=== PATIENT | male | born 1955 | race Caucasian/White ===

== ENCOUNTER 2019-04-25 10:00 | Inpatient (IN) | payer OTHER ==
[~2019-04-25 10:00] MED LIST: Iopamidol 370 76% 100 ML VIAL ONE; Iopamidol 370 76% 50 ML VIAL FS ONE
[2019-04-25 10:16] LABS: Hemoglobin 15.4 g/dL (14.0-18.0); Mean Corpuscular HGB CONC 32.4 g/dL (32.0-36.0); Mean Corpuscular Hemoglobin 28.1 pg (27.0-31.0); Mean Corpuscular Volume 86.5 fL (78.0-98.0); Mean Platelet Volume 8.6 fL (7.4-10.4); Platelet Count 256 thou/uL (130-400); RBC Distribution Width 13.7 % (11.5-14.5); Red Blood Cell (RBC) Count 5.48 mill/uL (4.70-6.10); White Blood Cell (WBC) Count 24.2 thou/uL (4.8-10.8)
--- NOTE | 2019-04-25 10:17 | RAD ---
XR Chest 1 View Portable History: STEMI Comparison: None. Findings: The fibular pad projects over the right lateral hemithorax. Heart size is enlarged. Mild pu lmonary edema. Trace effusions. No pneumothorax. Multiple midline sternotomy wires. No displaced rib fracture. Impression: Cardiomegaly with moderate pulmonary edema and trace effusions.
[2019-04-25 10:21] LABS: INR-International Normal Ratio 1.1; Prothrombin Time 14.5 SEC (12.0-14.7)
[2019-04-25] MEDS ORDERED: Verapamil 5 MG/2 ML VIAL ONE (10:29)
[2019-04-25] MEDS ORDERED: Adenosine 6 MG/2 ML VIAL ONE (10:29)
[2019-04-25] MEDS ORDERED: Nitroglycerin 100MG/250ML BOT 250 ML ONE (10:29)
[2019-04-25 10:30] LABS: Band 11 % (5-11); Eosinophils 4 % (0-10); Lymphocytes 10 % (21-51); MDiff Complete? YES; Neutrophil 74 % (42-75); RBC Morphology Normal; Reactive Lymphocytes 1 % (0-10)
[2019-04-25 10:40] LABS: ALT (SGPT) 104 U/L (8-55); AST (SGOT) 111 U/L (5-34); Albumin 3.7 g/dL (3.4-4.8); Alkaline Phosphatase 86 U/L (40-150); Anion Gap 16 mmol/L (10-20); BUN (Urea Nitrogen) 12 mg/dL (8.4-25.7); Bilirubin, Total 0.7 mg/dL (0.2-1.2); Calc. Creatinine Clearance 0 mL/min (70-130); Calcium 8.7 mg/dL (7.8-10.44); Carbon Dioxide 17 mmol/L (23-31); Chloride 108 mmol/L (98-107); Estimated GFR-MDRD 82; Globulin 3.3 g/dL (2.4-3.5); Glucose 132 mg/dL (80-115); Lipase 14 U/L (8-78); Potassium 4.3 mmol/L (3.5-5.1); Sodium 137 mmol/L (136-145)
[2019-04-25] MEDS ORDERED: Heparin 10,000 UNITS/1 ML VIAL ONE ×2 (10:46→11:29)
--- NOTE | 2019-04-25 10:49 | HP ---
DATE OF CONSULTATION: CHIEF COMPLAINT: Acute NH and syncope. HISTORY OF PRESENT ILLNESS: Mr. Wilson is a 63-year-old gentleman, who has not been seen or evaluated at [facility]. He recently had a syncopal episode while in the shower. An EKG was performed. He was shocked x3. Return of spontaneous circulation was noted. He did not require intubation. He was seen and evaluated in [facility]. He did have mild chest discomfort. His initial EKG did show ST-segment elevation noted anteriorly with some inferiorly. There was delay on angio given recent fall. CT scan of the head was negative. PAST MEDICAL HISTORY: 1. CAD, status post bypass surgery 18 years ago. 2. CABG x4. 3. Hypertension. ALLERGIES: NONE. PAST SURGICAL HISTORY: As above. REVIEW OF SYSTEMS: A 10-point review of systems is reviewed as above, otherwise negative. PHYSICAL EXAMINATION: GENERAL: Patient is a pleasant male, who is in no acute distress. The patient appears their stated age. He is currently requiring a BiPAP. VITAL SIGNS: Blood pressure 113/75, pulse 83, respirations 20. NEUROLOGIC: The patient is alert and oriented x3 with no focal neurologic deficits. HEENT: Sclerae without icterus. Mouth has moist mucous membranes with normal pallor. NECK: No JVD. Carotid upstroke brisk. No bruits bilaterally. LUNGS: Clear to auscultation with unlabored respirations. BACK: No scoliosis or kyphosis. CARDIAC: Regular rate and rhythm with normal S1 and S2. No S3 or S4 noted. No significant rubs, murmurs, thrills, or gallops noted throughout the precordium. PMI is not displaced. There is no parasternal heave. ABDOMEN: Soft, nontender, nondistended. No peritoneal signs present. No hepatosplenomegaly. No abnormal striae. EXTREMITIES: 2+ femoral and 2+ dorsalis pedis pulses. No cyanosis, clubbing, or edema. SKIN: No gross abnormalities. LABORATORY DATA: Pertinent labs pending. CARDIOVASCULAR STUDIES: EKG showed normal sinus rhythm with nonspecific interventricular conduction delay, mild ST-segment elevation noted inferiorly. There was initial ST-segment elevation noted anteriorly that has improved, but still noted. IMPRESSION: 1. Acute myocardial infarction. 2. Syncope. 3. Coronary artery disease. 4. Status post bypass surgery. RECOMMENDATIONS: His EKG is nearly normalized, but continues to have symptoms. We would recommend urgent coronary angiography plus PCI. I discussed the procedure in full detail with Mr. Wilson. The risks include, but not limited to the following: , stroke, NH, need for emergency surgery, loss of limb, bleeding, and infection, as well as a reaction to the dye causing kidney failure and needing long-term dialysis. I also discussed the risks of PCI to include all of the above including coronary dissection and perforation in addition to acute stent thrombosis and restenosis. All questions about the procedure were answered. Given the above, the patient agreed to proceed with coronary angiography and possible PCI. All questions were answered. Given the above, the patient agreed to proceed with the above procedure. The patient did state that of the four bypasses, one has already closed. Further recommendations pending the above. Job ID: [id number]
--- NOTE | 2019-04-25 10:55 | CT ---
CT HEAD NONCONTRAST: Date: 04/25/19 INDICATION: Fall, head injury. FINDINGS: There is no intracranial hemorrhage, mass effect, or midline shift demonstrated. Enlargement of the v entricular system is present, mild in degree. Microvascular ischemic disease of the cerebral white ma tter is present. No depressed calvarial fracture or pneumocephalus. Decreased pneumatization of right mastoid air cells. IMPRESSION: 1. No acute intracranial hemorrhage or mass effect. 2. Mild enlargement of the ventricular system. 3. Microvascular ischemic disease of the cerebral white matter, mild in degree. POS: [facility]
[2019-04-25] MEDS ORDERED: Clopidogrel Bisulfate 300 MG TAB ONE (11:05)
[2019-04-25] MEDS ORDERED: cloNIDine 0.1 MG TAB PO PRN (11:10)
[2019-04-25] MEDS ORDERED: Mag-Al 1200 mg/1200 mg/30 ML UDCUP PO PRN (11:10)
[2019-04-25] MEDS ORDERED: Morphine 2 MG/ML SYRINGE SLOW IVP PRN (11:10)
[2019-04-25] MEDS ORDERED: Acetaminophen/Codeine 30-300mg Tablet PO PRN (11:10)
[2019-04-25] MEDS ORDERED: Milk Of Magnesia 30 ML UDCUP PO PRN (11:10)
[2019-04-25] MEDS ORDERED: Nitroglycerin 0.4 MG TAB (25 Tab Bottle) SL PRN (11:10)
[2019-04-25] MEDS ORDERED: Sodium Chloride 0.9% 1,000 ML IV SCH ×2 (11:15→16:45)
[2019-04-25 12:42] LABS: Lactic Acid 1.4 mmol/L (0.5-2.2)
[2019-04-25 12:55] LABS: Troponin I 1.539 ng/mL (< 0.028)
[2019-04-25 18:12] LABS: CKMB 67.7 ng/mL (0-6.6); Troponin I 5.749 ng/mL (< 0.028)
[2019-04-25] MEDS: Atorvastatin Calcium 40 MG TAB PO SCH (21:03)
--- NOTE | 2019-04-25 23:18 | CON ---
DATE OF CONSULTATION: 04/25/2019 SERVICE: Pulmonary Medicine. HISTORY OF PRESENT ILLNESS: The patient is a 63-year-old white male with past medical history significant for coronary artery disease. He was in his usual state of health when he had a syncopal episode and was pulseless. He was in a ventricular tachycardia arrest. He ended up getting chest compressions x3 occasions. Each time, blood flow was restored. Ultimately, he was identified as having an acute myocardial infarction. He was emergently taken for cardiac catheterization, and blood vessel was opened up. Since then, he has been hemodynamically stable without any additional dying spells. He indicates he has some chest soreness associated with taking deep breaths or coughing because of the chest compressions. Outside of that, however, he is relatively asymptomatic. He denies having any significant shortness of breath. He does have known COPD. He takes Spiriva for this and with that, has very little reliance on his other inhalers. PAST MEDICAL HISTORY: 1. Coronary artery disease. 2. Hypertension. 3. COPD. PAST SURGICAL HISTORY: 1. Coronary artery bypass graft. 2. Percutaneous coronary intervention with drug-eluting stent. SOCIAL HISTORY: Negative for current alcohol, tobacco, or illicit drug use. He is in a detention. FAMILY HISTORY: Noncontributory. ALLERGIES: NO KNOWN DRUG ALLERGIES. MEDICATIONS: List of his inpatient medications was reviewed. I have scheduled DuoNebs around the clock. REVIEW OF SYSTEMS: General, head, ears, eyes, nose, throat, cardiovascular, respiratory, GI, , musculoskeletal, neurologic, and skin is negative except as mentioned in the HPI. PHYSICAL EXAMINATION: VITAL SIGNS: Afebrile, pulse 75, blood pressure 109/58, respirations 26, saturation 100% on 2 L nasal cannula. GENERAL: The patient is awake and alert, in no apparent distress. LUNGS: Very good air entry with a slightly prolonged expiratory phase. I do not appreciate any wheeze or crackles. HEART: Normal rate. Regular. ABDOMEN: Soft, nontender, nondistended. Bowel sounds are positive. MUSCULOSKELETAL: No cyanosis or clubbing. No pitting in the bilateral lower extremities. NEUROLOGIC: Grossly nonfocal. LABORATORY DATA: Basic metabolic profile is unremarkable. Liver function studies are slightly elevated with an AST and ALT in the low 100s. Troponin is up trending to 1.5, BNP 92, lactate 1.4. IMAGIN. CT of the brain demonstrates no acute intracranial abnormality. 2. Chest x-ray demonstrates no acute cardiopulmonary abnormality other than some rib fractures. There is significant cardiomegaly present. No obvious infiltrates other than some right infrahilar streakiness. ASSESSMENT: 1. Acute hypoxic respiratory failure. 2. Acute myocardial infarction. 3. Ventricular tachycardia arrest, status post return of circulation with preserved neurologic function. 4. Chronic obstructive pulmonary disease without current exacerbation. DISCUSSION AND PLAN: I will schedule DuoNebs q.6 hours. The patient will be watched very closely on telemetry in the ICU to make certain he does not have any additional events. I will drop his IV fluids down to 50 an hour. Supportive measures will otherwise be continued. 70 minutes have been devoted to this patient in various activities. I personally reviewed all imaging studies and laboratory data noted within this document. For fifty percent of this time, I was interacting with the patient at the bedside or coordinating care with the care team. For the remainder of the time I was immediately available to the patient in the hospital unit. Job ID: [id number] [facility]
[2019-04-26 04:21] LABS: #Eosinphils 0.1 thou/uL (0.0-0.7); #Lymphocytes 1.5 thou/uL (1.20-3.40); #Monocytes 0.9 thou/uL (0.11-0.59); #Neutrophils 12.1 thou/uL (1.40-6.50); %Basophils 0.2 % (0.0-1.0); %Eosinophils 0.4 % (0.0-10.0); %Lymphocytes 10.1 % (21.0-51.0); %Monocytes 6.2 % (0.0-10.0); %Neutrophils 83.2 % (42.0-75.0); Hemoglobin 13.9 g/dL (14.0-18.0); Mean Corpuscular HGB CONC 32.9 g/dL (32.0-36.0); Mean Corpuscular Hemoglobin 28.3 pg (27.0-31.0); Mean Corpuscular Volume 86.1 fL (78.0-98.0); Mean Platelet Volume 8.4 fL (7.4-10.4); Platelet Count 246 thou/uL (130-400); Red Blood Cell (RBC) Count 4.92 mill/uL (4.70-6.10); White Blood Cell (WBC) Count 14.5 thou/uL (4.8-10.8)
[2019-04-26 04:40] LABS: ALT (SGPT) 77 U/L (8-55); AST (SGOT) 74 U/L (5-34); Albumin 3.8 g/dL (3.4-4.8); Alkaline Phosphatase 68 U/L (40-150); Anion Gap 13 mmol/L (10-20); BUN (Urea Nitrogen) 17 mg/dL (8.4-25.7); Bilirubin, Total 1.1 mg/dL (0.2-1.2); Calc. Creatinine Clearance 110 mL/min (70-130); Calcium 8.6 mg/dL (7.8-10.44); Carbon Dioxide 23 mmol/L (23-31); Chloride 107 mmol/L (98-107); Estimated GFR-MDRD Greater than 90; Globulin 2.8 g/dL (2.4-3.5); Glucose 139 mg/dL (80-115); Potassium 4.7 mmol/L (3.5-5.1); Protein, Total 6.6 g/dL (5.8-8.1); Sodium 138 mmol/L (136-145)
[2019-04-26 06:10] VITALS: BMI 33.0
[2019-04-26] MEDS ORDERED: Prevnar 13-Val Conj/PF 0.5 ML SYRINGE IM ONE (09:00)
[2019-04-26] MEDS: Aspirin Chewable 81 MG TAB PO SCH (09:01)
[2019-04-26] MEDS: Clopidogrel Bisulfate 75 MG TAB PO SCH (09:01)
--- NOTE | 2019-04-26 11:13 | PDOC.CPN ---
- Subjective Date: 04/26/19 Time: 14:13 Interval history: Doing well No changes noted overnight - Objective Allergies/Adverse Reactions: Allergies Allergy/AdvReac Type Severity Reaction Status Date / Time codeine Allergy Verified 04/25/19 12:10 Visit Medications: Current Medications Acetaminophen/Codeine Phosphate (Tylenol #3) 1 tab PO Q4H PRN PRN Reason: Mild Pain (1-3) Al Hydroxide/Mg Hydroxide (Maalox) 30 ml PO Q3H PRN PRN Reason: Indigestion Albuterol/Ipratropium (Duoneb) 3 ml NEB [id number] [facility] Last Admin: 04/26/19 06:40 Dose: 3 ml Aspirin (Aspirin Chewable) 81 mg PO DAILY [facility] Last Admin: 04/26/19 09:01 Dose: 81 mg Atorvastatin Calcium (Lipitor) 40 mg PO HS [facility] Last Admin: 04/25/19 21:03 Dose: 40 mg Clonidine (Catapres) 0.1 mg PO Q2H PRN PRN Reason: SBP GREATER THAN 160 Clopidogrel Bisulfate (Plavix) 75 mg PO DAILY [facility] Last Admin: 04/26/19 09:01 Dose: 75 mg Magnesium Hydroxide (Milk Of Magnesium) 30 ml PO Q12H PRN PRN Reason: Constipation Morphine Sulfate (Morphine) 2 mg SLOW IVP Q4H PRN PRN Reason: Moderate Chest Pain (4-6) Last Admin: 04/25/19 13:39 Dose: 2 mg Nitroglycerin (Nitrostat) 0.4 mg SL Q5MIN PRN PRN Reason: Chest Pain Vital Signs & Weight: Vital Signs Temp Pulse Pulse Pulse Resp BP BP 04/26/19 09:52 83 78 131/70 132/54 L 04/26/19 08:00 98.7 F 04/26/19 06:54 04/26/19 06:40 74 21 H 04/26/19 04:00 98.8 F 04/26/19 00:01 70 31 H 04/26/19 00:00 98.8 F Pulse Ox Pulse Ox Pulse Ox 04/26/19 09:52 97 95 04/26/19 08:00 95 04/26/19 06:54 97 04/26/19 06:40 97 04/26/19 04:00 04/26/19 00:01 99 04/26/19 00:00 Weight 198 lb 6.656 oz - Physical Exam General: alert & oriented x3 Neck: supple neck, no JVD/HJR Cardiac: regular rate and rhythm, no murmur Lungs: clear to auscultation, no rhonchi Neuro: grossly intact Abdomen: unremarkable - Labs Result Diagrams: 04/26/19 04:10 04/26/19 04:10 Troponin/CKMB CK-MB (CK-2) 67.7 ng/mL (0-6.6) H* 04/25/19 17:26 Troponin I 5.749 ng/mL (< 0.028) H* 04/25/19 17:26 - Assessment/Plan Assessment/Plan: CAD NQWMI s/p stent Patient currently doing well. Patient underwent an acute cardiac event yesterday. Based on his troponin levels this may have been a primary electrical event. Pt with syncope and CPR followed by AED. Would recommend an echo a Doppler to assess EF. EF on cath estimated at 35%. Will also consult with EP for possible EP study versus ICD. He does have severe cornary disease with two of four grafts occluded and a third graft with severe disease present that is grafted to a very small diffusely diseased circumflex artery. Continue beta dave therapy Statin therapy in addition to a nitrates
[2019-04-26] MEDS ORDERED: Amoxicillin/Potassium Clav 500 MG TAB PO SCH (13:00)
[2019-04-26] MEDS ORDERED: predniSONE 20 MG TAB PO SCH (13:00)
--- NOTE | 2019-04-26 13:18 | PRG ---
DATE OF SERVICE: 04/26/2019 SERVICE: Pulmonary Medicine. INTERVAL HISTORY: The patient is doing really well from respiratory standpoint. Breathing comfortably. No complaints of nausea or vomiting. He does have ongoing chest discomfort. Otherwise, there has been no interval change to his condition. PHYSICAL EXAMINATION: VITAL SIGNS: Afebrile, pulse 79, blood pressure 120/57, respirations 29, saturation 98%, currently on 1 L nasal cannula. GENERAL: The patient is awake and alert, in no apparent distress. LUNGS: Decent air entry. No prolonged expiratory phase or wheezing is appreciated. HEART: Normal rate, regular. ABDOMEN: Soft, nontender, nondistended. Bowel sounds are positive. MUSCULOSKELETAL: No cyanosis or clubbing. No pitting in the bilateral lower extremities. NEUROLOGIC: Grossly nonfocal. LABORATORY DATA: WBC 14.5, hemoglobin 13.9, platelets 246,000. Basic metabolic profile is unremarkable. Liver function studies including AST and ALT are significantly improved. Troponin has gone up to 67. Lactate 1.4. ASSESSMENT: 1. Acute hypoxic respiratory failure, resolving. 2. Acute ST-elevation myocardial infarction. 3. Ventricular tachycardia arrest, status post return of circulation with preserved neurologic function. 4. Chronic obstructive pulmonary disease with minimal exacerbation. DISCUSSION AND PLAN: I am going to add a 5-day course of steroids. We will continue antibiotics and nebulized medications. IV fluids will be interrupted. At this point, he is stable for transition out of the ICU to the telemetry unit. Follow for at least one more day. Job ID: [id number] [facility]
--- NOTE | 2019-04-26 16:03 | EKG ---
Test Reason : Blood Pressure : / mmHG Vent. Rate : 086 BPM Atrial Rate : 086 BPM P-R Int : 130 ms QRS Dur : 100 ms QT Int : 374 ms P-R-T Axes : 059 062 169 degrees QTc Int : 447 ms Normal sinus rhythm Possible Left atrial enlargement Inferior infarct , possibly acute Anterior infarct , age undetermined * ACUTE TX * Consider right ventricular involvement in acute inferior infarct Abnormal ECG Reconfirmed by CHANO DIAZ, CANDICE ([id number]), electronic news gathering editor PRABHU EPSTEIN ([id number]) on 04/26/2019 4:03:08 PM Referred By: Confirmed By:CANDICE MADDEN MD
[2019-04-26] MEDS: Atorvastatin Calcium 40 MG TAB PO SCH (21:27)
[2019-04-26] MEDS: Carvedilol 3.125 MG TAB PO SCH (21:27)
[2019-04-26] MEDS: Amoxicillin/Potassium Clav 500 MG TAB PO SCH (21:35)
[2019-04-27] MEDS ORDERED: predniSONE 20 MG TAB PO SCH (08:00)
[2019-04-27] MEDS ORDERED: Lisinopril 5 MG TAB PO SCH (09:00)
[2019-04-27] MEDS: Clopidogrel Bisulfate 75 MG TAB PO SCH (09:49)
[2019-04-27] MEDS: Amoxicillin/Potassium Clav 500 MG TAB PO SCH ×2 (09:49→19:49)
[2019-04-27] MEDS: Aspirin Chewable 81 MG TAB PO SCH (09:50)
[2019-04-27] MEDS: Carvedilol 3.125 MG TAB PO SCH ×2 (09:50→19:49)
--- NOTE | 2019-04-27 18:09 | PRG ---
DATE OF SERVICE: 04/27/2019 SERVICE: Pulmonary Medicine. INTERVAL HISTORY: The patient is doing fine from respiratory standpoint. He has complaints of soreness in the left ankle. It has been like this ever since he woke up, but we have been focused on other things. That being said, now that his chest discomfort and shortness of breath have improved dramatically, we can focus on something different. He does not remember any mechanism of injury, but of course, he had a complete syncopal event and dying spell. This is very likely that he could have injured his ankle around that time. PHYSICAL EXAMINATION: VITAL SIGNS: Afebrile, pulse 79, blood pressure 132/63, respirations 20, and saturation 92% on room air. GENERAL: The patient is awake and alert, in no apparent distress. LUNGS: Decent air entry with minimal crackles present. HEART: Normal rate and regular. ABDOMEN: Soft, nontender, and nondistended. Bowel sounds are positive. MUSCULOSKELETAL: No cyanosis or clubbing. There is no pitting in the bilateral lower extremities except for the left foot. He also has ecchymoses around the lateral aspect of the left ankle. IMAGING STUDIES: Echocardiogram demonstrates difficult study technically. EF appears to be depressed. EF cannot be calculated. ASSESSMENT: 1. Acute hypoxic respiratory failure, resolved. 2. Acute ST-elevation myocardial infarction. 3. Ventricular tachycardia arrest, status post return of circulation with preserved neurologic function. 4. Chronic obstructive pulmonary disease with minimal exacerbation. 5. Ankle pain, with tenderness and bruising. DISCUSSION AND PLAN: Antibiotics and steroids can be discontinued after a total duration of 5 days. I will get a 2-view x-ray of the ankle. If there is any osseous abnormalities, Orthopedic Surgery will be contacted. Either way, he has no further requirements for inpatient pulmonary or critical care opinion, and I will sign off. Please call with additional questions or concerns. Job ID: [id number] [facility]
--- NOTE | 2019-04-27 19:02 | RAD ---
LEFT ANKLE THREE VIEWS: History: Ankle pain, bruising. FINDINGS: There is an obliquely oriented distal fibular shaft fracture, essentially nondisplaced. No medial mal leolar fracture is seen. Questionable slight widening to the distance between the medial malleolus an d callus could indicate some underlying deltoid ligament injury but no soft tissue swelling is seen. Surgical clips are seen within the calf region. IMPRESSION: Nondisplaced distal fibular shaft fracture. POS: [facility]
--- NOTE | 2019-04-27 19:03 | RAD ---
LEFT FOOT THREE VIEWS: History: Foot pain. FINDINGS: Distal fibular shaft fracture is again noted. There are arthritic changes of the first metatarsal pha langeal joint. No additional fractures are seen. Calcaneal spurs are present. IMPRESSION: Distal fibular fracture. POS: [facility]
[2019-04-27] MEDS: Atorvastatin Calcium 40 MG TAB PO SCH (19:49)
[2019-04-27 19:58] VITALS: BP 134/67; TEMP 97.2
== END 2019-04-27 21:20 | disposition short-term general hospital (02) | DRG 246 ==
LOC: EEVIPCON 10:00 → ERS 10:00 → 2NO 10:18 → CCU 12:05 → 2NO 04-26 17:23
PROVIDERS: ADMIT Internal Medicine Cardiovascular Disease; ATTEND Internal Medicine Cardiovascular Disease
PROC: 5A12012 Performance of Cardiac Output, Single, Manual (ICD-10-PCS; principal; 2019-04-25)
PROC: 027034Z Dilation of Coronary Artery, One Artery with Drug-eluting Intraluminal Device, Percutaneous Approach (ICD-10-PCS; 2019-04-25)
PROC: 02C03ZZ Extirpation of Matter from Coronary Artery, One Artery, Percutaneous Approach (ICD-10-PCS; 2019-04-25)
PROC: 4A023N7 Measurement of Cardiac Sampling and Pressure, Left Heart, Percutaneous Approach (ICD-10-PCS; 2019-04-25)
PROC: B2151ZZ Fluoroscopy of Left Heart using Low Osmolar Contrast (ICD-10-PCS; 2019-04-25)
PROC: B2131ZZ Fluoroscopy of Multiple Coronary Artery Bypass Grafts using Low Osmolar Contrast (ICD-10-PCS; 2019-04-25)
PROC: B2181ZZ Fluoroscopy of Left Internal Mammary Bypass Graft using Low Osmolar Contrast (ICD-10-PCS; 2019-04-25)
DX: I21.19 ST elevation (STEMI) myocardial infarction involving other coronary artery of inferior wall (principal); J96.01 Acute respiratory failure with hypoxia; I47.2 Ventricular tachycardia; J44.1 Chronic obstructive pulmonary disease with (acute) exacerbation; I25.10 Atherosclerotic heart disease of native coronary artery without angina pectoris; I10 Essential (primary) hypertension; M25.572 Pain in left ankle and joints of left foot; Z95.1 Presence of aortocoronary bypass graft; Z79.899 Other long term (current) drug therapy; Z79.82 Long term (current) use of aspirin
CPT/HCPCS: 36415; 70450; 71045; 76942; 80053; 82553; 83605; 83690; 83880; 84484; 85025; 85347; 85610; 85730; 86850; 86900; 86901; 90471; 90670; 92941; 92978; 93005; 93306; 93459; 93798; 94640; 96374; C1725; C1753; C1769; C1874; C1887; C9606; G0009; J0153; J1644; J2270; J7512; J7620; Q9967